=== PATIENT | female | born 1990 | race Caucasian/White ===

== ENCOUNTER 2016-07-31 07:43 | Emergency (ER) | payer BC ==
[2016-07-31 08:09] VITALS: BP 153/76; PULSE 91; RESP 18; TEMP 98.2; O2SAT 98
--- NOTE | 2016-07-31 08:09 | UCPHY ---
H & P Patient Type: Established Time Seen by Provider: 07/31/16 07:54 HPI/ROS: Chief complaint: Foreign body in left ear lobe HPI: 25-year-old patient got a plastic backing to a dangle earring lodged in her left earlobe when she left in for a couple of days. Patient states that she pulled the earring out of her ear and the plastic packing remained imbedded in her earlobe. She has attempted to get this out last night without any success. Has had a little bit of irritation to that area. ROS: 10 point Review of Systems is negative except as noted in the HPI. Physical exam: General: Awake, alert, no acute distress HEENT: Left ear lobe. The pinna is mildly inflamed. The there is a palpable foreign body noted within the upper earring hole. There is scant serosanguineous discharge. There is no erythema. Skin: No rash - Medical/Surgical History Hx Asthma: No Hx Chronic Respiratory Disease: No Hx Diabetes: No Hx Cardiac Disease: No Hx Renal Disease: No Hx Cirrhosis: No Hx Alcoholism: No Hx HIV/AIDS: No Hx Splenectomy or Spleen Trauma: No Other PMH: None - Family History Significant Family History: No pertinent family hx - Social History Smoking Status: Never smoked Constitutional: Initial Vital Signs Temperature (C) 36.8 C 07/31/16 07:50 Heart Rate 91 07/31/16 07:50 Respiratory Rate 18 07/31/16 07:50 Blood Pressure 153/76 H 07/31/16 07:50 O2 Sat (%) 98 07/31/16 07:50 O2 Delivery Mode Room Air Allergies/Adverse Reactions: No Known Allergies Allergy (Unverified 07/31/16 07:58) Home Medications: Medication Instructions Recorded NK [No Known Home Meds] 12/18/13 Medical Decision Making Procedures: Procedure note: Soft tissue foreign body removal. Indication. Foreign body in left ear pinna. Area was anesthetized with 1% lidocaine aid infiltrated. The area was explored with forceps. The foreign body was palpated and he easily removed. There is scant bleeding afterwards. There were no complications. Procedure was performed by me. Departure - Departure Disposition: Home, Routine, Self-Care Clinical Impression: Foreign body (FB) in soft tissue Condition: Good Instructions: Soft Tissue Foreign Body (ED) Additional Instructions: If you want to keep the earring hole open put a large loop earring in as soon to go home while your ear is still numb. Leave this in place until your ear fully heals over the next 2 weeks. Clean the area daily with hydrogen peroxide. Follow up with her primary care physician in 3-4 days for any concerns. Referrals: Christi Salazar MD [Primary Care Provider] - As per Instructions - PQRS PQRS Measurement: NA
== END 2016-07-31 08:19 | disposition home or self-care (01) ==
LOC: CED 07:43
PROC: 09C1XZZ Extirpation of Matter from Left External Ear, External Approach (ICD-10-PCS; principal; 2016-07-31)
DX: S00.452A Superficial foreign body of left ear, initial encounter (principal)
CPT/HCPCS: G0463-PO